=== PATIENT | male | born 1950 | race Caucasian/White ===

== ENCOUNTER 2024-03-29 11:52 | Inpatient (IN) | payer MEDICARE, SELFPAY ==
[2024-03-29] VITALS (15 sets, daily range): BP systolic 96–151; BP diastolic 63–98
--- NOTE | 2024-03-29 09:15 | ED.GENMED ---
Addendum entered and electronically signed by Ramana Salinas DO 03/29/24 10:57:
30 minutes critical care time
Original Note:
History of Present Illness
<Bill Cates PA-C - Last Filed: 03/29/24 10:40>
General
Chief Complaint: Chest Pain
Source: patient
Exam Limitations: none
Time Seen by Provider: 03/29/24 09:05
History of Present Illness
History of Present Illness:
73-year-old otherwise healthy male presents with onset of jaw tightness right arm and shoulder discomfort associated with chest tightness that started at 530 this morning. This woke him up from sleep. This lasted 10 to 15 minutes and went away.
Again at 830 this morning he was sitting in bed watching TV and developed similar symptoms that lasted 10 to 15 minutes. At the current time he is pain-free. He was slightly nauseous and sweaty with the symptoms. The pain was not pleuritic. He
noted a substernal chest discomfort at this time. No recent travel or surgery. No leg swelling or calf pain. Does not take any prescribed medicines daily. No other complaints at this time
Past History
<Bill Cates PA-C - Last Filed: 03/29/24 10:40>
Past History
ED Past Medical History: None
ED Past Surgical History: Orthopedic (right shoulder, right knee surgery (Dr. Higginbotham))
Social History
Tobacco: Non-smoker
Personal:
Living: with family
Employment: Employed
Phy Exam
<Bill Cates PA-C - Last Filed: 03/29/24 10:40>
Physical Exam
Physical Exam:
General: Well-appearing male nontoxic no acute respiratory distress
HEENT: Normocephalic atraumatic
Heart: Regular rate and rhythm no murmurs
Lungs: Clear no wheeze or rales
Abdomen is soft nontender nondistended
Extremities: No cyanosis or edema
Vascular: 2+ radial pulses that are symmetric bilaterally
Scores
<Bill Cates PA-C - Last Filed: 03/29/24 10:40>
Heart Score for Chest Pain Patients
STEMI patient?: Yes
Course
<Bill Cates PA-C - Last Filed: 03/29/24 10:40>
Orders/Labs/Results
Orders:
Orders
03/29/24 08:58
ECG [Electrocardiogram (*1)] Urgent
Reason for Study: Chest Pain
03/29/24 08:59
EKG- Treatment ONCE
03/29/24 09:15
CR Chest - 2 Views Urgent
Comment:
Reason For Exam: chest pain
03/29/24 09:23
Complete Blood Count/With Diff Urgent
Comprehensive Metabolic Panel Urgent
Lipase Urgent
Troponin I Urgent
03/29/24 09:52
Aspirin Chewable [Low Strength Aspirin] 324 mg PO NOW STA
03/29/24 10:30
Morphine Sulfate 4 mg IV NOW STA
03/29/24 10:31
Morphine Sulfate 4 mg .ROUTE .STK-MED ONE
03/29/24 10:35
Electrocardiogram (*1) Urgent
Reason for Study: Chest Pain
EKG- Treatment ONCE
Heparin 4,000 units IV NOW STA
03/29/24 10:36
Ticagrelor [Brilinta] 180 mg PO ONCE ONE
Abnormal Lab Results
03/29/24
09:23
WBC 11.6 H 10^3/uL
(4.8-10.8)
MCV 79.7 L fL
(80.0-94.0)
MCH 26.4 L pg
(27.0-31.0)
Absolute Lymphs (auto) 5.1 H 10^3/uL
(1.2-3.4)
Absolute Monos (auto) 0.7 H 10^3/uL
(0.1-0.6)
Glucose 106 H mg/dl
(70-99)
03/29/24 09:23
03/29/24 09:23
Vital Signs
Initial and Last Documented VS:
Initial Vital Signs
Temp Pulse Resp BP Pulse Ox
98.0 F 87 16 127/77 98
03/29/24 09:03 03/29/24 09:03 03/29/24 09:03 03/29/24 09:03 03/29/24 09:03
Last Documented Vital Signs
Temp Pulse Resp BP Pulse Ox
98.0 F 78 13 133/85 100
03/29/24 09:03 03/29/24 09:25 03/29/24 09:25 03/29/24 09:25 03/29/24 09:25
<Ramana Salinas, DO - Last Filed: 03/29/24 10:41>
Orders/Labs/Results
Orders:
Orders
03/29/24 08:58
ECG [Electrocardiogram (*1)] Urgent
Reason for Study: Chest Pain
03/29/24 08:59
EKG- Treatment ONCE
03/29/24 09:15
CR Chest - 2 Views Urgent
Comment:
Reason For Exam: chest pain
03/29/24 09:23
Complete Blood Count/With Diff Urgent
Comprehensive Metabolic Panel Urgent
Lipase Urgent
Troponin I Urgent
03/29/24 09:52
Aspirin Chewable [Low Strength Aspirin] 324 mg PO NOW STA
03/29/24 10:30
Morphine Sulfate 4 mg IV NOW STA
03/29/24 10:31
Morphine Sulfate 4 mg .ROUTE .STK-MED ONE
03/29/24 10:35
Electrocardiogram (*1) Urgent
Reason for Study: Chest Pain
EKG- Treatment ONCE
Heparin 4,000 units IV NOW STA
03/29/24 10:36
Ticagrelor [Brilinta] 180 mg PO ONCE ONE
Abnormal Lab Results
03/29/24
09:23
WBC 11.6 H 10^3/uL
(4.8-10.8)
MCV 79.7 L fL
(80.0-94.0)
MCH 26.4 L pg
(27.0-31.0)
Absolute Lymphs (auto) 5.1 H 10^3/uL
(1.2-3.4)
Absolute Monos (auto) 0.7 H 10^3/uL
(0.1-0.6)
Glucose 106 H mg/dl
(70-99)
03/29/24 09:23
03/29/24 09:23
Vital Signs
Initial and Last Documented VS:
Initial Vital Signs
Temp Pulse Resp BP Pulse Ox
98.0 F 87 16 127/77 98
03/29/24 09:03 03/29/24 09:03 03/29/24 09:03 03/29/24 09:03 03/29/24 09:03
Last Documented Vital Signs
Temp Pulse Resp BP Pulse Ox
98.0 F 78 13 133/85 100
03/29/24 09:03 03/29/24 09:25 03/29/24 09:25 03/29/24 09:25 03/29/24 09:25
Garimalt;Bill Cates PA-C - Last Filed: 03/29/24 10:40>
MDM/Problems Addressed
Differential Diagnosis Includes:
Chest pain. Consider ACS unlikely be dissection given resolution of symptoms or PE. EKG through triage shows sinus rhythm with PACs with a rate of 81 no obvious ischemic changes. Will check initial and repeat troponin if necessary. Chest x-ray
pending.
<Bill Cates PA-C - Last Filed: 03/29/24 10:40>
*Critical Care Note
Total Time (30-74mins, 75-104mins- exclusive of procedures): Not Applicable
<Ramana Salinas DO - Last Filed: 03/29/24 10:41>
*Radiology
Radiology exam reviewed: radiology read reviewed
*Pulse Oximetry
Patient hypoxic: no
*EKG
Interpreted by ED Provider?: Yes
Interpretation: normal
Comparison EKG: no comparison EKG present
Heart Rate: 78
Rate: normal
Rhythm: sinus
Ischemia: non-specific ST changes
*Credit Collection Associate Interpretation
Rate: normal
Interpretation: normal
Heart Rate: 78
*Critical Care Note
Total Time (30-74mins, 75-104mins- exclusive of procedures): 30
Data Reviewed
Source: patient and spouse
<Bill Cates PA-C - Last Filed: 03/29/24 10:40>
Update Note
Update Note:
Called back into room by patient's . Patient was having symptoms again. He was complaining of chest pain and jaw discomfort. This was brief however lasted about a minute or 2 and went away. Repeat EKG shows no changes. Aspirin ordered.
Patient had another episode of symptoms. EKG
Done the third time shows ST segment elevation. Heparin ordered nitroglycerin ordered Brilinta ordered. STEMI alert was called. Patient subsequently taken to the Service Inspector.
ED Attending Note
<Bill Cates PA-C - Last Filed: 03/29/24 10:40>
-
Portions of this chart may have been created with voice recognition software.� Occasional wrong word or��sound alike� substitutions may have occurred due to the inherent limitations of voice recognition software.
<Ramana Salinas, DO - Last Filed: 03/29/24 10:41>
ED Attending Note
Patient seen and examined by attending physician: Yes
I performed the substantive portion of visit, reviewed & personally made and approve the management plan that is documented in note by myself or LA.: Yes
ED Attending Note:
seen with la, sputtering chest pain for a few hours initial EKG troponin noted patient with current symptoms 3rd EKG shows ST segment elevation treated with aspirin heparin Brilinta morphine taken to the Service Inspector urgently
Discharge Plan
Departure
Date of Disposition: 03/29/24
Time of Disposition: 10:39
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
Admit to doctor: Cathie
Presentation/result/management discussed w/ accepting MD/DO: cathie
Patient with high blood pressure during this ER visit?: No
Condition: Serious
Covid-19: Not Applicable
Prescriptions:
No Action
ascorbic acid (vitamin C) [Vitamin C] 1,000 mg Tablet
1 g PO DAILY
cholecalciferol (vitamin D3) [Vitamin D3] 50 mcg (2,000 unit) Capsule
50 mcg PO DAILY
Probiotic 3 billion cell Capsule
3,000 mmu cells PO DAILY
glucosamine-chondroitin 500-200 mg Tablet Extended Release
1 tab PO DAILY
hydrocodone-acetaminophen 5-325 mg tablet
1 tab PO Q6H PRN (Reason: moderate-severe pain) Qty: 30 0RF
Rx Instructions:
1 tab for moderate pain, 2 if severe.
Dx total joint. Ongoing therapy.
ondansetron HCl 4 mg tablet
4 mg PO Q6H PRN (Reason: nausea and vomiting) Qty: 20 0RF
Rx Instructions:
Take 1/2 hour prior to [place] for recurrent nausea.
mupirocin 2 % ointment
1 applic intranasal BID Qty: 1 0RF
celecoxib [Celebrex] 200 mg capsule
200 mg PO DAILY Qty: 30 0RF
Rx Instructions:
Take with food.
Do not take within hours of Aspirin post-surgery.
famotidine [Pepcid] 20 mg tablet
20 mg PO HS Qty: 30 0RF
Rx Instructions:
Take nightly while on Celebrex.
aspirin 325 mg capsule
325 mg PO DAILY Qty: 30 0RF
Interventions
Interventions:
*Risk Screen - Suicide Last Done: 03/29/24 09:03
*Neglect/Abuse Screening Last Done: 03/29/24 09:03
ED- Cardiac Assessment Last Done: 03/29/24 09:28
Discharge Date and Time
Print Language: LATVIAN
[2024-03-29 09:40] LABS: % Basophils 0.6 % (0-2); % Eosinophils 2.2 % (0-6); % Immature Granulocytes 0.3 % (0-0.5); % Lymphocytes 43.7 % (20.5-51.1); % Monocytes 6.3 % (1.7-9.3); % Neutrophils 46.9 % (42.2-75.2); Absolute Basophils 0.1 10^3/uL (0-0.2); Absolute Eosinophils 0.3 10^3/uL (0-0.7); Absolute Lymphocytes 5.1 10^3/uL (1.2-3.4); Absolute Monocytes 0.7 10^3/uL (0.1-0.6); Absolute Neutrophils 5.4 10^3/uL (1.4-6.5); Hemoglobin 15.9 g/dL (13.0-18.0); Mean Corp Hgb Conc. 33.1 g/dL (33.0-37.0); Mean Corpuscular Hgb 26.4 pg (27.0-31.0); Mean Corpuscular Volume 79.7 fL (80.0-94.0); Mean Platelet Volume 9.5 fL (7.4-10.4); Nucleated Red Blood Cells % 0 % (-); Platelet Count 193 10^3/uL (130-400); Red Blood Cell Count 6.02 10^6/uL (4.70-6.10); Red Cell Dist. Width 13.2 % (11.5-14.5); White Blood Cell Count 11.6 10^3/uL (4.8-10.8)
[2024-03-29 09:53] LABS: ALT (SGPT) 20 U/L (0-50); AST (SGOT) 25 U/L (17-59); Albumin 4.2 g/dl (3.5-5.0); Alkaline Phosphatase 64 U/L (38-126); Blood Urea Nitrogen 18 mg/dl (9-20); Calcium 9.3 mg/dl (8.4-10.2); Carbon Dioxide 26 mmol/L (22-30); Chloride 105 mmol/L (98-107); Glucose 106 mg/dl (70-99); Lipase 95 U/L (23-300); Potassium 4.4 mmol/L (3.5-5.1); Sodium 141 mmol/L (135-145); Total Protein 6.7 g/dl (6.3-8.2); eGFR > 60.00
[2024-03-29 10:03] LABS: Troponin I 0.027 ng/ml
[2024-03-29] MEDS: LOW STRENGTH ASPIRIN 324 MG PO (10:07)
--- NOTE | 2024-03-29 10:35 | ED TECH ---
A STEMI ALERT was called #[id number]# @10:25 AM Per J Luis HERRERA.
--- NOTE | 2024-03-29 10:41 | EDRN ---
Morphine override admin as per verbal as documented on ACS worksheet.
--- NOTE | 2024-03-29 10:41 | ED.GENMED ---
History of Present Illness
General
Chief Complaint: Chest Pain
Time Seen by Provider: 03/29/24 09:05
Past History
Past History
ED Past Medical History: None
ED Past Surgical History: Orthopedic (right shoulder, right knee surgery (Dr. Higginbotham))
Social History
Tobacco: Non-smoker
Personal:
Living: with family
Employment: Employed
Course
Orders/Labs/Results
Orders:
Orders
03/29/24 08:58
ECG [Electrocardiogram (*1)] Urgent
Reason for Study: Chest Pain
03/29/24 08:59
EKG- Treatment ONCE
03/29/24 09:15
CR Chest - 2 Views Urgent
Comment:
Reason For Exam: chest pain
03/29/24 09:23
Complete Blood Count/With Diff Urgent
Comprehensive Metabolic Panel Urgent
Lipase Urgent
Troponin I Urgent
03/29/24 09:52
Aspirin Chewable [Low Strength Aspirin] 324 mg PO NOW STA
03/29/24 10:30
Morphine Sulfate 4 mg IV NOW STA
03/29/24 10:31
Morphine Sulfate 4 mg .ROUTE .STK-MED ONE
03/29/24 10:35
Electrocardiogram (*1) Urgent
Reason for Study: Chest Pain
EKG- Treatment ONCE
Heparin 4,000 units IV NOW STA
Ticagrelor [Brilinta] 180 mg .ROUTE .STK-MED ONE
03/29/24 10:36
Heparin 5,000 units .ROUTE .STK-MED ONE
Ticagrelor [Brilinta] 180 mg PO ONCE ONE
Abnormal Lab Results
03/29/24
09:23
WBC 11.6 H 10^3/uL
(4.8-10.8)
MCV 79.7 L fL
(80.0-94.0)
MCH 26.4 L pg
(27.0-31.0)
Absolute Lymphs (auto) 5.1 H 10^3/uL
(1.2-3.4)
Absolute Monos (auto) 0.7 H 10^3/uL
(0.1-0.6)
Glucose 106 H mg/dl
(70-99)
03/29/24 09:23
03/29/24 09:23
Vital Signs
Initial and Last Documented VS:
Initial Vital Signs
Temp Pulse Resp BP Pulse Ox
98.0 F 87 16 127/77 98
03/29/24 09:03 03/29/24 09:03 03/29/24 09:03 03/29/24 09:03 03/29/24 09:03
Last Documented Vital Signs
Temp Pulse Resp BP Pulse Ox
98.0 F 78 13 133/85 100
03/29/24 09:03 03/29/24 09:25 03/29/24 09:25 03/29/24 09:25 03/29/24 09:25
ED Attending Note
-
Portions of this chart may have been created with voice recognition software.� Occasional wrong word or��sound alike� substitutions may have occurred due to the inherent limitations of voice recognition software.
Discharge Plan
Departure
Date of Disposition: 03/29/24
Time of Disposition: 10:42
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
Admit to doctor: Cathie
Presentation/result/management discussed w/ accepting MD/DO: cathie
Patient with high blood pressure during this ER visit?: No
Condition: Serious
Covid-19: Not Applicable
Prescriptions:
No Action
ascorbic acid (vitamin C) [Vitamin C] 1,000 mg Tablet
1 g PO DAILY
cholecalciferol (vitamin D3) [Vitamin D3] 50 mcg (2,000 unit) Capsule
50 mcg PO DAILY
Probiotic 3 billion cell Capsule
3,000 mmu cells PO DAILY
glucosamine-chondroitin 500-200 mg Tablet Extended Release
1 tab PO DAILY
hydrocodone-acetaminophen 5-325 mg tablet
1 tab PO Q6H PRN (Reason: moderate-severe pain) Qty: 30 0RF
Rx Instructions:
1 tab for moderate pain, 2 if severe.
Dx total joint. Ongoing therapy.
ondansetron HCl 4 mg tablet
4 mg PO Q6H PRN (Reason: nausea and vomiting) Qty: 20 0RF
Rx Instructions:
Take 1/2 hour prior to [place] for recurrent nausea.
mupirocin 2 % ointment
1 applic intranasal BID Qty: 1 0RF
celecoxib [Celebrex] 200 mg capsule
200 mg PO DAILY Qty: 30 0RF
Rx Instructions:
Take with food.
Do not take within hours of Aspirin post-surgery.
famotidine [Pepcid] 20 mg tablet
20 mg PO HS Qty: 30 0RF
Rx Instructions:
Take nightly while on Celebrex.
aspirin 325 mg capsule
325 mg PO DAILY Qty: 30 0RF
Interventions
Interventions:
*Risk Screen - Suicide Last Done: 03/29/24 09:03
*Neglect/Abuse Screening Last Done: 03/29/24 09:03
ED- Cardiac Assessment Last Done: 03/29/24 09:28
Discharge Date and Time
Print Language: MAORI
[2024-03-29] MEDS: MORPHINE SULFATE 4 MG IV (10:48)
[2024-03-29 10:49] LABS: ACT-LR - POC 120 Seconds (116-155)
[2024-03-29] MEDS: HEPARIN 4000 UNITS IV (10:49)
[2024-03-29] MEDS: BRILINTA 180 MG PO (10:49)
--- NOTE | 2024-03-29 10:55 | HPS.HSE ---
Family Physician
-
Family Physician: Gus Sánchez MD
Chief Complaint
-
chest tightness
History of Present Illness
73 y/o white male, PMH sig for HLD, baseline asymptomatic sinus bradycardia, LAFB, anxiety, daily ETOH, multiple right shoulder orthopedic surgeries. Non smoker, lives at home with .
Woke at 5:30am with chest tightness, radiating to jaw, right shoulder and arm. This subsided however it came back a few hours later with associated nausea, diaphoresis. Presented to ER, initial EKG NSR w/LAFB, poor R wave progression. Chest pain
progressed and subsequent EKG with anterolateral ST elevations. Loaded with aspirin, brilinta, heparin and brought urgently to the blender laborer. 1st troponin 0.027.
Medical History
Past Medical History
Past Medical History: Reports Hypercholesterolemia, Psychiatric (anxiety) and Other (Degenerative disc disease, osteoarthritis, bilateral hearing loss, hemorrhoids)
Past Surgical History: Reports Orthopedic (Reverse Right Right total shoulder arthroplasty w/tenodesis (03/2022), rotator cuff repair w/biceps tenotomy, Right rotator cuff repair, Right knee arthroscopy) and Other (Bilateral inguinal hernia repair
with umbilical hernia repair (2017))
Social History
Tobacco: Non-smoker
Alcohol: Daily (1-2 drinks/daily)
Drug: None
Personal:
Living: With Family
Family History
Family History: Not pertinent
Allergies / Home Medications
Allergies reflects when Allergies were last updated in [employer].
Home Medications with original date entered in [employer]
Allergy/Medication List:
NKDA
MEDS: pt states he is only taking supplements/vitamins.
he is not taking any prescription medications, and is not taking daily aspirin.
he stopped prior statin medication several years ago.
Review of Systems
-
History Source: Patient
A 12 point ROS was completed and negative except as noted: Yes
Cardiac: Reports Chest Pain
Psych: Reports Anxiety
Physical Exam
Vital Signs
Vital Signs
Temp Pulse Resp BP Pulse Ox
98.0 F 78 13 133/85 100
03/29/24 09:03 03/29/24 09:25 03/29/24 09:25 03/29/24 09:25 03/29/24 09:25
Physical Exam
General: Other (PE deferred d/t urgent nature of cath)
Laboratory Results
-
03/29/24 09:23
03/29/24 09:23
Laboratory Results
Total Bilirubin 1.0 mg/dl (0.2-1.3) 03/29/24 09:23
AST 25 U/L (17-59) 03/29/24 09:23
ALT 20 U/L (0-50) 03/29/24 09:23
Alkaline Phosphatase 64 U/L (38-126) 03/29/24 09:23
Troponin I 0.027 ng/ml 03/29/24 09:23
Lipase 95 U/L (23-300) 03/29/24 09:23
Data Reviewed
-
Diagnostic Radiology: Report Reviewed by me
Medical Tests (Nuc Med, Echo, EKG etc): Image Personally Visualized and interpreted, Report Reviewed by me and Discussed with Physician
Lab Data: Labs Reviewed by me and Discussed with Physician
Old Records: Reviewed
Impression/Plan
-
PCP: Gus Sánchez MD
CDY: None prior to admission
73 y/o white male, PMH sig for HLD, baseline asymptomatic sinus bradycardia, LAFB, anxiety, daily ETOH, multiple right shoulder orthopedic surgeries. Non smoker, lives at home with .
Woke at 5:30am with chest tightness, radiating to jaw, right shoulder and arm. This subsided however it came back a few hours later with associated nausea, diaphoresis. Presented to ER, initial EKG NSR w/LAFB, poor R wave progression. Chest pain
progressed and subsequent EKG with anterolateral ST elevations. Loaded with aspirin, brilinta, heparin and brought urgently to the blender laborer. 1st troponin 0.027.
LHC- Mid LAD 99% subtotal occlusion- s/p angioplasty/KIRBY
IMPRESSION:
Anterolateral STEMI
s/p mid LAD PCI/KIRBY
HLD
Asymptomatic baseline SB w/LAFB
DDD
Multiple Right shoulder orthopedic surgeries
Bilateral hearing impaired
Anxiety
Daily ETOH
Elevated glucose
PLAN:
Anterolateral STEMI
s/p LAD PCI
DAPT w/asa, brilinta- CM to check cost
trend troponin to peak
Echo in AM
Will wait on on BB d/t bradycardia, monitor tele
hold on josefina/arb- BP 110s- will monitor
start high intensity statin therapy, check lipid profile in AM
cardiac rehab
followup at [facility] at d/c
Elevated glucose- mild elevation
check HgbA1C
Daily ETOH- should cut back
[2024-03-29 10:57] LABS: ACT-LR - POC 219 Seconds (116-155)
[2024-03-29 11:20] LABS: ACT-LR - POC 282 Seconds (116-155)
--- NOTE | 2024-03-29 11:53 | ITS.CL.CATH ---
Date Night Caregiver - Catheterization
Cardiac Catheterization
Procedure Report:
LEFT HEART CATHETERIZATION AND CORONARY INTERVENTION
Date of Procedure: March 29, 2024
Referring: [place] emergency room
PROCEDURES:
1. Left heart catheterization, coronary angiogram.
2. Ultrasound-guided access.
3. Successful percutaneous coronary artery intervention of a 90% hazy mid LAD stenosis with a 2.5 x 30 mm Medtronic Franklin frontier drug-eluting stent, postdilated with a 2.5 x 20 mm NC balloon at 18 mateo distally and 2.75 x 15 mm NC balloon at 18 mateo
proximally with an excellent angiographic result and KIMBER-3 flow restored.
INDICATION: Kurt is a 73-year-old gentleman with no significant past medical history or chronic medications, family history of coronary artery disease with TN in his dad in early 60s, non-smoker who presents with stuttering chest pain episodes
since 5:30 in the morning found to have anterior ST elevation TN on repeat EKG while in the emergency room being treated for an NSTEMI associated with episode of intense substernal chest discomfort. He was given full dose aspirin, 180 mg of
Brilinta, 4000 units of unfractionated IV heparin and 2 sublingual nitroglycerin in the emergency room. After detailed informed consent reviewing the risk and benefits, he was emergently brought up to the heart catheterization lab for coronary
angiogram.
ACCESS: Right radial artery, 6 Canadian sheath, under ultrasound guidance
HEMODYNAMICS : (mmHg)
AO (s/d) : 125/72
LV (s/d) : 123/9
LVEDP : 22
CORONARY FINDINGS
DOMINANCE: Right
LEFT MAIN: The left main artery is a large-caliber vessel which gives rise to the left anterior descending artery and the left circumflex artery. There is mild diffuse atherosclerotic plaque.
LEFT ANTERIOR DESCENDING: The left anterior descending artery is a medium to large caliber vessel which gives rise to 1 major diagonal branch and multiple small diagonal branches as it courses through the anterior interventricular groove and wraps
around the apex. Proximal LAD has a 20 to 30% stenosis. Mid LAD has a hazy 90% stenosis just proximal to the major diagonal branch, which is the culprit of presenting ACS. There is a second 70% stenosis distal to this lesion at the level of a
small diagonal branch.
CIRCUMFLEX: The left circumflex artery is a medium caliber vessel which gives rise to 3 major obtuse marginal branches which are small to medium in caliber. There is mild diffuse atherosclerotic plaque.
RIGHT CORONARY ARTERY: The right coronary artery is a medium to large caliber vessel which gives rise to the right posterior descending artery and the right posterolateral system. There is mild to moderate diffuse atherosclerotic plaque. Ostial
RPDA has a 80 to 90% stenosis. Distal RPL prior to a branch has a 70% stenosis with the upper branch with eccentric 70% stenosis.
CORONARY INTERVENTION: The left coronary artery was selectively engaged using a 6 Canadian EBU 3.5 guide catheter. Additional heparin was given to maintain a therapeutic ACT throughout the case. With some difficulty we navigated a 190 cm 0.014' BMW
coronary wire across the mid LAD stenosis into the distal LAD. The lesion was initially predilated using a 2.0 x 12 mm semicompliant balloon with good expansion. We further predilated the lesion and a second 80% stenosis distal to the culprit
lesion with a 2.5 x 20 mm semicompliant balloon at 14 mateo with good expansion. We subsequently used one 2.5 x 30 mm Medtronic Franklin frontier drug-eluting stent in the mid LAD which was further postdilated using a 2.5 x 20 mm NC trek balloon at 18
mateo distally and a 2.75 x 15 mm NC trek balloon at 18 mateo proximally with an excellent angiographic result and voodoo of KIMBER-3 flow. Patient was chest pain free at the end of the case and tolerated the procedure well. No acute complications.
SEDATION: 62 minutes of procedural sedation was utilized. An independent medical accounts receivable specialist was present to assist with and help manage the patient's level of consciousness and physiologic status.
RADIATION SUMMARY: Fluoro Time (min): 15.3, Dose (mGy): 914.86, DAP (Gy.cm2) : 68.7
Closure Device: Vascular band over right radial artery, 10 cc of a
CONCLUSIONS
1. Successful percutaneous coronary artery intervention of a 90% hazy mid LAD stenosis with a 2.5 x 30 mm Medtronic Franklin frontier drug-eluting stent, postdilated with a 2.5 x 20 mm NC balloon at 18 mateo distally and 2.75 x 15 mm NC balloon at 18 mateo
proximally with an excellent angiographic result and KIMBER-3 flow restored.
2. Ostial RPDA has a 80 to 90% stenosis.
3. Elevated LVEDP at 22 mmHg.
RECOMMENDATIONS
1. Uninterrupted dual antiplatelet therapy with daily baby aspirin and Brilinta 90 mg twice daily along with high intensity statin and beta-marilin as tolerated.
2. Wean radial band per protocol.
3. Aggressive management of cardiovascular risk factors.
4. Eventual referral for outpatient cardiac rehab.
Magalys Alexis MD, FACC, [facility]
--- NOTE | 2024-03-29 12:43 | PTCARENOTE ---
Received patient from the laboratory animal care veterinarian after cardiac cath via right radial. Radial band in place with pulse ox of 99% on the right hand, strong radial pulse palpated. Reviewed post cath restrictions, monitoring VS, call richardson in reach. Patient denies any
pain, states 'I feel great'. Family at the bedside now.
[2024-03-29 12:55] LABS: Glycohemoglobin (HgbA1c) 5.1 % (4.0-5.6)
--- NOTE | 2024-03-29 14:06 | CM ---
Pricing on Brilinta through the patient's [facility] is $40 for a 30 day supply. It is available at the patients [facility]. I will place a free 30 day coupon in the patients red discharge.
--- NOTE | 2024-03-29 14:18 | CM ---
Chart reviewed. Patient is independent of ADLS, lives with his in a 2 STH, 1st floor set up, 2 MARIMAR, 0 DME. Plan is for the patient to return home. CM to follow
[2024-03-29 15:48] LABS: Troponin I 0.572 ng/ml
[2024-03-29] MEDS: LIPITOR 80 MG PO (17:21)
--- NOTE | 2024-03-29 19:22 | PTCARENOTE ---
Troponin slightly elevated, tt to Dr. Alexis, patient is pain-free. Ambulating in the [place] with his short distances.
[2024-03-29] MEDS: BRILINTA 90 MG PO (20:53)
[2024-03-29] MEDS: OCEAN, SALINE MIST 1 SPRAYS NASAL (22:02)
--- NOTE | 2024-03-30 00:34 | PTCARENOTE ---
Patient ambulating self in room w/out difficulty. at bedside. Tele remains SR, HR in the 60's at rest. Denies any chest pain or discomfort. Right radial dressing C/D/I, and patient aware of activity restrictions. POC ongoing,call richardson in reach.
[2024-03-30 03:33] VITALS: BP 115/85
[2024-03-30 03:53] VITALS: BMI 26.5
[2024-03-30] MEDS: OCEAN, SALINE MIST 1 SPRAYS NASAL ×2 (03:56→16:00)
[2024-03-30 04:26] LABS: Hematocrit 41.2 % (39.0-52.0); Hemoglobin 14.6 g/dL (13.0-18.0); Mean Corp Hgb Conc. 35.4 g/dL (33.0-37.0); Mean Corpuscular Hgb 27.2 pg (27.0-31.0); Mean Corpuscular Volume 76.9 fL (80.0-94.0); Mean Platelet Volume 9.6 fL (7.4-10.4); Platelet Count 172 10^3/uL (130-400); Red Blood Cell Count 5.36 10^6/uL (4.70-6.10); Red Cell Dist. Width 13.2 % (11.5-14.5); White Blood Cell Count 12.5 10^3/uL (4.8-10.8)
[2024-03-30 04:51] LABS: Blood Urea Nitrogen 14 mg/dl (9-20); Calcium 9.1 mg/dl (8.4-10.2); Carbon Dioxide 23 mmol/L (22-30); Chloride 106 mmol/L (98-107); Estimated Creatinine Clearance 59 ml/min; Glucose 86 mg/dl (70-99); HDL Cholesterol 59 mg/dl; LDL Cholesterol, Calculated 97 mg/dl; Potassium 4.4 mmol/L (3.5-5.1); Sodium 140 mmol/L (135-145); Total Cholesterol 180 mg/dl (50-199); Triglyceride 123 mg/dl (10-149); Very Low Density Lipoprotein 24 mg/dl (0-30); eGFR > 60.00
[2024-03-30 07:26] VITALS: BP 123/68
--- NOTE | 2024-03-30 08:00 | PTCARENOTE ---
Assumed care of pt from prev nsg shift; pt AAOx3 w/no c/o CP or SOB. Pt w/VS stable w/HR in the 70's & BP this AM 123/68. Pt is SR on telemetry monitoring. Pt w/R radial site w/dressing C/D/I w/no signs or symptoms of bleeding or hematoma. Pt w/call
richardson within reach & plan of care ongoing.
--- NOTE | 2024-03-30 09:40 | W.PN.CARDCBS ---
Addendum entered and electronically signed by Miki Rangel MD 03/30/24 10:42:
I saw and examined the patient.
The HIGHWAY PAINTER or PA's note was reviewed and I agree with the note.
Comment: General: Well developed, well nourished in NAD.
Neck: Supple, no JVD, HJR, carotids +2 B/L, no bruits bilaterally.
Heart: Non displaced PMI, RRR, no murmurs, No S3, S4, no rubs.
Lungs: Clear to auscultation bilaterally, no wheeze, rhonchi, rubs bilaterally,
normal expiratory phase.
Extremities: No clubbing, cyanosis or edema bilaterally.
Neuro: Grossly nonfocal, awake, alert and oriented x3.
Echocardiogram with normal ventricular function. He continues to do well status post LAD stent. Probable discharge 03/31. Continue beta-marilin. Hold on SIMA/ARB with blood pressure. On aspirin and Brilinta. Discussed with patient and in
detail as well as nurse practitioner from [employer]
Original Note:
Today's Communication / Plan
-
echo today
monitor tele, bp another 24 hours
trend trop to peak
anticipate d/c tomorrow
Impression / Plan
-
PCP: Gus Sánchez MD
CDY: None prior to admission
73 y/o white male, PMH sig for HLD, baseline asymptomatic sinus bradycardia, LAFB, anxiety, daily ETOH, multiple right shoulder orthopedic surgeries. Non smoker, lives at home with .
Woke at 5:30am with chest tightness, radiating to jaw, right shoulder and arm. This subsided however it came back a few hours later with associated nausea, diaphoresis. Presented to ER, initial EKG NSR w/LAFB, poor R wave progression. Chest pain
progressed and subsequent EKG with anterolateral ST elevations. Loaded with aspirin, brilinta, heparin and brought urgently to the [facility]. 1st troponin 0.027.
LHC- Mid LAD 99% subtotal occlusion- s/p angioplasty/KIRBY
IMPRESSION:
Anterolateral STEMI
s/p mid LAD PCI/KIRBY
HLD
Asymptomatic baseline SB w/LAFB
DDD
Multiple Right shoulder orthopedic surgeries
Bilateral hearing impaired
Anxiety
Daily ETOH
Elevated glucose
PLAN:
Anterolateral STEMI
s/p LAD PCI
DAPT w/asa, brilinta- cost acceptable per pt and rx sent to pharmacy today
Troponin up to 1.6 and rising- trend to peak
Echo done this morning- results pending
Tele- SB/SR 50-60s, no vt/arrhythmia, hold on BB for now
SBP 110s- holding on SIMA/ARB for now
Lipid profile noted, started high intensity statin therapy
cardiac rehab
followup at [facility] at d/c
long discussion w/pt and re: FL, stents, medications, echo. All questions answered.
Elevated glucose- mild elevation
HgbA1C 5.1%
Daily ETOH- should cut back, discussed this w/pt and
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
Subjective
Date of Service: March 30, 2024
Denies cp/palps/dyspnea
oob to bathroom
cath site wtihout pain
Objective
Labs:
03/30/24 03:47
03/30/24 03:47
Labs
Hgb 14.6 g/dL (13.0-18.0) 03/30/24 03:47
Hct 41.2 % (39.0-52.0) 03/30/24 03:47
Plt Count 172 10^3/uL (130-400) 03/30/24 03:47
Sodium 140 mmol/L (135-145) 03/30/24 03:47
Potassium 4.4 mmol/L (3.5-5.1) 03/30/24 03:47
BUN 14 mg/dl (9-20) 03/30/24 03:47
Creatinine 0.9 mg/dL (0.7-1.3) 03/30/24 03:47
Glucose 86 mg/dl (70-99) 03/30/24 03:47
Troponins
03/29/24 03/29/24 03/29/24
09:23 15:08 20:57
Troponin I 0.027 0.572 H* D 1.040 H* D
03/30/24
03:47
Troponin I 1.600 H* D
Vital Signs and I&O:
Vital Signs
Temp Pulse Resp BP Pulse Ox
97.9 F 73 18 123/68 99
03/30/24 07:24 03/30/24 08:00 03/30/24 07:24 03/30/24 07:26 03/30/24 07:24
Vital Signs
Temp Pulse Resp BP Pulse Ox
97.9 F 73 18 123/68 99
03/30/24 07:24 03/30/24 08:00 03/30/24 07:24 03/30/24 07:26 03/30/24 07:24
Intake & Output
03/28/24 03/29/24 03/30/24 03/31/24
06:59 06:59 06:59 06:59
Intake Total 1340 / 1340
Balance 1340 / 1340
Physical Exam
Physical Exam
AAOx3, MAEE 5/5
RRR S1 S2 no murmurs
CTA bilat, non labored
soft abd, + bs
right radial cath site with mild swelling but non tender, no ht/bleeding, palpable pulse
extremities w/palpable distal pulses, no edema
[2024-03-30] MEDS: BRILINTA 90 MG PO ×2 (09:53→20:02)
[2024-03-30] MEDS: LOW STRENGTH ASPIRIN 81 MG PO (09:54)
[2024-03-30 11:14] VITALS: BP 100/71
--- NOTE | 2024-03-30 12:22 | CM ---
Chart reviewed. Patient is independent of ADLS, lives with his in a 2 S[address], 1st level set up, 2 MARIMAR, 0 DME. Plan is for the patient to return home. CM to follow
[2024-03-30 15:28] VITALS: BP 115/78
[2024-03-30] MEDS: LIPITOR 80 MG PO (17:57)
[2024-03-30 18:37] VITALS: BP 120/66
[2024-03-30 22:19] VITALS: BP 106/88
--- NOTE | 2024-03-30 23:00 | PTCARENOTE ---
Pt received at change of shift. VSS, SR on tele with HR 60s. R radial cath site c/d/i and CHARLES. Ambulating independently without difficulty. Plan of care discussed with pt and his , questions encouraged and answered. Call richardson within reach.
[2024-03-31 02:41] VITALS: BP 107/95
[2024-03-31 03:31] LABS: Hematocrit 42.6 % (39.0-52.0); Hemoglobin 14.7 g/dL (13.0-18.0); Mean Corp Hgb Conc. 34.5 g/dL (33.0-37.0); Mean Corpuscular Hgb 26.5 pg (27.0-31.0); Mean Corpuscular Volume 76.8 fL (80.0-94.0); Mean Platelet Volume 9.6 fL (7.4-10.4); Platelet Count 166 10^3/uL (130-400); Red Blood Cell Count 5.55 10^6/uL (4.70-6.10); Red Cell Dist. Width 13.1 % (11.5-14.5); White Blood Cell Count 12.9 10^3/uL (4.8-10.8)
[2024-03-31 03:45] LABS: Blood Urea Nitrogen 16 mg/dl (9-20); Calcium 9.5 mg/dl (8.4-10.2); Carbon Dioxide 23 mmol/L (22-30); Chloride 106 mmol/L (98-107); Estimated Creatinine Clearance 53 ml/min; Glucose 94 mg/dl (70-99); Potassium 4.4 mmol/L (3.5-5.1); Sodium 138 mmol/L (135-145); eGFR > 60.00
[2024-03-31 07:47] VITALS: BP 111/70
--- NOTE | 2024-03-31 08:00 | PTCARENOTE ---
Assumed care of pt from prev nsg shift; pt AAOx3 w/no c/o CP or SOB. Pt w/VS stable w/HR in the 60's & BP this AM 111/70. Pt is SR on telemetry monitoring. 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 Pt w/call richardson
within reach & plan of care ongoing.
--- NOTE | 2024-03-31 08:51 | W.PN.CARDCBS ---
Addendum entered and electronically signed by Magalys Alexis MD 03/31/24 13:10:
I saw and examined the patient.
The Delivery Technician's note was reviewed and I agree with the note.
Comment: Patient is doing well and does not offer any significant complaints. No recurrent chest discomfort or shortness of breath. No issues at the right radial access site. He has been ambulating without any difficulty.
Vital signs are stable. Lab work reviewed. Telemetry with short run of likely atrial tachycardia. On exam patient is well-appearing, no acute distress, normal S1 and S2, no murmurs, rubs or gallops, no JVD, lungs are clear to auscultation
bilaterally, right radial access site without evidence of hematoma or bruit and 2+ radial pulse, warm extremities without significant edema
.
Echocardiogram with preserved LV systolic function without wall motion abnormalities.
.
Recommendations:
1. Uninterrupted dual antiplatelet therapy with daily baby aspirin and Brilinta along with statin and low-dose beta-marilin starting today.
2. Aggressive management of cardiovascular risk factors.
3. Outpatient cardiology follow-up will be set up.
4. Outpatient referral for cardiac rehab.
Magalys Alexis MD, [facility], [facility]
Original Note:
Today's Communication / Plan
-
Start metoprolol xl 25/daily
followup at [facility] as scheduled
home today
Impression / Plan
-
PCP: Gus Sánchez MD
CDY: None prior to admission
73 y/o white male, PMH sig for HLD, baseline asymptomatic sinus bradycardia, LAFB, anxiety, daily ETOH, multiple right shoulder orthopedic surgeries. Non smoker, lives at home with .
Woke at 5:30am with chest tightness, radiating to jaw, right shoulder and arm. This subsided however it came back a few hours later with associated nausea, diaphoresis. Presented to ER, initial EKG NSR w/LAFB, poor R wave progression. Chest pain
progressed and subsequent EKG with anterolateral ST elevations. Loaded with aspirin, brilinta, heparin and brought urgently to the director of labor relations. 1st troponin 0.027.
LHC- Mid LAD 99% subtotal occlusion- s/p angioplasty/KIRBY
IMPRESSION:
Anterolateral STEMI
s/p mid LAD PCI/KIRBY
HLD
Asymptomatic baseline SB w/LAFB
DDD
Multiple Right shoulder orthopedic surgeries
Bilateral hearing impaired
Anxiety
Daily ETOH
Elevated glucose
PLAN:
Anterolateral STEMI
s/p LAD PCI
DAPT w/asa, brilinta- cost acceptable per pt and rx sent to pharmacy today
Peak troponin 1.6
Echo- nml LVSF, EF 65%, no WMA, mild CLVH, mod TR, PASP 29
Tele- SR 60-70s, short bursts ST 140s, no VT
will start metoprolol xl 25mg daily with first dose today
SBP 110s- holding on SIMA/ARB for now and can re-evaluate in cardiology office
Lipid profile noted, started high intensity statin therapy
cardiac rehab
followup at [facility] at d/c
long discussion w/pt and re: FL, stents, medications, echo. All questions answered.
Elevated glucose- mild elevation
HgbA1C 5.1%
Daily ETOH- should cut back, discussed this w/pt and
Progress Note - Velocity Shooter
Subjective
Date of Service: March 31, 2024
Denies cp/palps/dyspnea
oob ambulating
cath site without pain
Objective
Labs:
03/31/24 02:47
03/31/24 02:47
Labs
Hgb 14.7 g/dL (13.0-18.0) 03/31/24 02:47
Hct 42.6 % (39.0-52.0) 03/31/24 02:47
Plt Count 166 10^3/uL (130-400) 03/31/24 02:47
Sodium 138 mmol/L (135-145) 03/31/24 02:47
Potassium 4.4 mmol/L (3.5-5.1) 03/31/24 02:47
BUN 16 mg/dl (9-20) 03/31/24 02:47
Creatinine 1.0 mg/dL (0.7-1.3) 03/31/24 02:47
Glucose 94 mg/dl (70-99) 03/31/24 02:47
Troponins
03/29/24 03/29/24 03/29/24
:23 15:08 20:57
Troponin I 0.027 0.572 H* D 1.040 H* D
03/30/24 03/30/24
03:47 09:30
Troponin I 1.600 H* D 1.450 H*
Vital Signs and I&O:
Vital Signs
Temp Pulse Resp BP Pulse Ox
97.8 F 65 20 111/70 99
03/31/24 07:45 03/31/24 07:47 03/31/24 07:45 03/31/24 07:47 03/31/24 07:45
Vital Signs
Temp Pulse Resp BP Pulse Ox
97.8 F 65 20 111/70 99
03/31/24 07:45 03/31/24 07:47 03/31/24 07:45 03/31/24 07:47 03/31/24 07:45
Intake & Output
03/29/24 03/30/24 03/31/24 04/01/24
06:59 06:59 06:59 06:59
Intake Total 1340 / 1340
Balance 1340 / 1340
Physical Exam
Physical Exam
AAOx3, MAEE 5/5
RRR S1 S2 no murmurs
CTA bilat, non labored
soft abd, + bs
right radial cath site without ht/bleeding, non tender
bilat extremities w/palpable distal pulses, no edema
[2024-03-31] MEDS: BRILINTA 90 MG PO (09:20)
[2024-03-31] MEDS: LOW STRENGTH ASPIRIN 81 MG PO (09:20)
[2024-03-31] MEDS: TOPROL XL 25 MG PO (09:20)
--- NOTE | 2024-03-31 09:20 | W.DS.TRANS ---
DC Summary - [employer]
-
Discharge Instructions:
Discharge Diagnosis/Procedures STEMI, s/p angioplasty and stent to Left
Anterior Descending artery
Diet Low Cholesterol
Activity No strenuous activity
Additional Activity For 1 week, then OK to walk only at slower pace
until cardiac rehab starts
Driving Restrictions No driving for 24 hours
Other Services Cardiac Rehab
Instructions:
Stand-Alone Forms: DC Instructions- Cath/EP Lab
Changes to Home Medications: Yes
Discharge Medications:
DC Medications w/original date entered in [employer]
ascorbic acid (vitamin C) 1,000 mg tablet (Vitamin C) 1 g PO DAILY Supplement 02/27/22
cholecalciferol (vitamin D3) 50 mcg (2,000 unit) capsule (Vitamin D3) 50 mcg PO DAILY Supplement 02/27/22
glucosamine ER 500 mg-chondroitin 200 mg tablet,extended release 1 tab PO BID Supplement 02/27/22
lactobacillus combination no.4 3 billion cell capsule (Probiotic) 3,000 mmu cells PO DAILY Supplement 02/27/22
aspirin 81 mg chewable tablet 81 mg PO DAILY #0 tabs 03/30/24
atorvastatin 80 mg tablet 80 mg PO QPM #90 tabs 03/30/24
ticagrelor 90 mg tablet (Brilinta) 90 mg PO BID #180 tabs 03/30/24
metoprolol succinate 25 mg tablet,extended release 24 hr 25 mg PO DAILY #90 tabs 03/31/24
Home Medication Changes
NEW: aspirin, atorvastatin, ticagrelor, metoprolol succinate
Pending Results: No
[2024-03-31] MEDS: FLUAD (65 yr+) 2024-2025 FORMULA 0.5 ML IM (09:32)
--- NOTE | 2024-03-31 10:54 | PTCARENOTE ---
Pt's IV line & court monitor D/C'd. Discussed D/C instructions w/pt & spouse. Pt D/C'd to home w/spouse driving. 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
== END 2024-03-31 10:56 | disposition home or self-care (01) | DRG 322 ==
LOC: IVU 11:52
PROVIDERS: Nurse Practitioner; Physician Assistant; ADMITTING PHYSICIAN Internal Medicine Interventional Cardiology; EMERGENCY PHYSICIAN Emergency Medicine
PROC: B2151ZZ Fluoroscopy of Left Heart using Low Osmolar Contrast (ICD-10-PCS; 2024-03-29)
PROC: 027034Z Dilation of Coronary Artery, One Artery with Drug-eluting Intraluminal Device, Percutaneous Approach (ICD-10-PCS; 2024-03-29)
PROC: 4A023N7 Measurement of Cardiac Sampling and Pressure, Left Heart, Percutaneous Approach (ICD-10-PCS; 2024-03-29)
PROC: B2111ZZ Fluoroscopy of Multiple Coronary Arteries using Low Osmolar Contrast (ICD-10-PCS; 2024-03-29)
DX: I21.09 ST elevation (STEMI) myocardial infarction involving other coronary artery of anterior wall (principal); F41.9 Anxiety disorder, unspecified; E78.00 Pure hypercholesterolemia, unspecified
CPT/HCPCS: 71046; 80048; 80053; 80061; 83036; 83690; 84484; 85025; 85027; 85347; 90662; 93005; 93306; 93458; 96374; 96375; 99152; 99153; 99291; C1725; C1769; C1874; C1894; C9606; G0008; Q9967

== ENCOUNTER 2024-05-10 08:50 | Outpatient (RCR) | payer MEDICARE, SELFPAY | END 2024-05-10 23:59 | disposition home or self-care (01) | LOC: CRHB 08:50 | PROVIDERS: ATTENDING PHYSICIAN Internal Medicine Interventional Cardiology; FAMILY PHYSICIAN Family Medicine | DX: I25.2 Old myocardial infarction (principal); I25.10 Atherosclerotic heart disease of native coronary artery without angina pectoris (principal); Z95.5 Presence of coronary angioplasty implant and graft | CPT/HCPCS: G0422; G0423 ==

== ENCOUNTER 2024-06-18 11:35 | Outpatient (RCR) | payer MEDICARE, SELFPAY ==
[2024-06-15 10:38] LABS: HDL Cholesterol 43 mg/dl; LDL Cholesterol, Calculated 44 mg/dl; Total Cholesterol 103 mg/dl (50-199); Triglyceride 82 mg/dl (10-149); Very Low Density Lipoprotein 16 mg/dl (0-30)
== END 2024-06-18 23:59 | disposition home or self-care (01) ==
LOC: CRHB 11:35
PROVIDERS: ATTENDING PHYSICIAN Internal Medicine Interventional Cardiology; FAMILY PHYSICIAN Family Medicine
DX: I25.2 Old myocardial infarction (principal); Z95.5 Presence of coronary angioplasty implant and graft
CPT/HCPCS: 36415; 80061; G0422; G0423

== ENCOUNTER → 2024-11-10 14:51 | Outpatient (REF) | payer MEDICARE, SELFPAY | LOC: HWRAD 14:51 | PROVIDERS: ATTENDING PHYSICIAN Family Medicine | DX: M54.50 Low back pain, unspecified (principal) | CPT/HCPCS: 72110 ==